=== PATIENT | female | born 1970 | race Caucasian/White ===

== ENCOUNTER 2022-08-01 10:35 | Outpatient (CLI) | payer OTHER, SELFPAY ==
--- OUTSIDE RECORDS SUMMARY | 2022-08-01 13:13 | XMS_ITS | Clinical Summary ---
:1970 Author Organization [facility] [facility] Address [place] [address] Care Team Providers Name Role Phone Yen Domingo MD Primary Care Provider Allergies No known active allergies Medications No known medications Active Problems Problem Noted Date Adenomatous colon polyp 05/31/2021 Overview: Colonoscopy 05/2021 polyp, repeat in 7 ye ars, propofol Class 1 obesity due to excess calories without serious comorbidity with 12/06/2020 body mass index (BMI) of 31.0 to 31.9 in adult Encounters Date Type Specialty Care Team Description 07/03/2022 Nurse/Clinic Staff Only Sutu re Removal 07/03/2022 Travel 07/01/2022 Travel 06/24/2022 Telephone Estrellita Gupta Results MD Melissa 06/19/2022 Procedure Only Estrellita Gupta Procedure MD Melissa 06/19/2022 Travel 06/16/2022 Travel 06/06/2022 Office Visit Estrellita Gupta Derm Problem MD Melissa 06/05/2022 Travel 05/09/2022 Orders Only Scanner <No scans attac hed> 05/09/2022 Orders Only Scanner <No scans attac hed> 05/09/2022 Orders Only Scanner <No scans attac hed> from Last 3 Months Immunizations Name Administration Dates Next Due AMB Influenza, IIV4 PF (=>6 mos Flulaval,Fluzone 06/26/2020 Fluarix)(Flu Clinic Only) COVID-19 vaccine (Moderna 100mcg/0.5mL) ASHLEY MELGOZA 01/09/2021, 12/12/2020 Influenza Virus, Unspecified 07/08/2017 Influenza, IIV4 07/10/2021 Tdap 09/12/2021, 11/29/2015 Family History Medical History Relation Name Comments Hyperlipidemia Brother Hypertension Brother Mental illness Brother Arrhythmia Father Cancer-prostate Father Hyperlipidemia Father Hypertension Father Diabetes type II Mother Stroke Mother Stroke Other great maternal a unt had stroke at age 19 Mental illness Sister 1 alcoholism and d epression Mental illness Sister 2 Relation Name Status Comments Brother Father Mother Other Sister 1 Sister 2 Social History Tobacco Use Types Packs/Day Years Used Date Never Smoker Smokeless Tobacco: Never Used Tobacco Cessation: Counseling Given: Yes Alcohol Use Standard Drinks/Week Comments Yes 0 (1 standard drink = 0.6 oz pure alcoho l) occasion wine Alcohol Habits Answer Date Recorded How often do you have a drink containing alcohol? 2-4 times a month 09/14/2019 How many drinks containing alcohol do you have on a 1 or 2 09/14/2019 typical day when you are drinking? How often do you have six or more drinks on one Never 09/14/2019 occasion? Comment: occasion wine 10/05/2018 Sex Assigned at Date Recorded Not on file COVID-19 Exposure Response Date Recorded In the last 10 days, have you been in contact with No / Unsu re 07/03/2022 1:01 PM CDT someone who was confirmed or suspected to have Coronavirus/COVID-19? Obstetrics History Last Filed Vital Signs Vital Sign Reading Time Taken Comments Blood Pressure 180/95 09/16/2021 2:16 PM [facility]IA[facility] Pulse 70 09/16/2021 2:16 PM [facility] Temperature 36.8 ??C (98.3 ??F) 05/24/2021 9:14 AM CDT Respiratory Rate - - Oxygen Saturation 100% 09/16/2021 2:16 PM [facility] Inhaled Oxygen Concentration - - Weight 78.7 kg (173 lb 8 oz) 09/16/2021 2:16 PM [facility] Height 152.4 cm (5') 05/24/2021 9:14 AM CDT Body Mass Index 33.88 05/24/2021 9:14 AM CDT Plan of Treatment Upcoming Encounters Date Type Specialty Care Team Description 08/06/2022 Office Visit Yen Domingo MD [address] [place], [place] [address] (Wo rk) 09/18/2022 Office Visit Estrellita Gupta MD [address] [address] (Wo rk) Health Maintenance Due Date Last Done Comments Pneumococcal series for age 19-64 1974 (1 - PCV) Hepatitis C screening for age 0312/20/1986 18-79 Zoster (shingles) series for age 0312/21/1987 50+ (1 of 2) COVID-19 vaccine series (4 - 10/11/2021 08/16/2021, 021, Booster for Moderna series) 12/12/2020 BMI (ht and wt on same day) for 05/24/2022 05/24/2021, 09/29, age 18+ 09/14/2019, Additional history exists Depression screening for age 12+ 05/27/2022 05/27/2021, , 10/20/2019, Additional history exists Influenza for age 50-64 05/29/2022 07/10/2021, 06/26/2020, 07/08/2017 Pap test for age 21-65 11/18/2022 11/18/2019, 11/18/2019, 02/03/2018, Additional history exists Mammogram for age 45-75 02/21/2023 02/21/2022, 02/20/2021 Lipids for age 45-75 11/13/2025 11/13/2020, 10/20/2019 Colonoscopy through age 75 05/27/2026 05/27/2021, , 12/27/2015, Additional history exists Tetanus booster 09/12/2031 09/12/2021, 11/29/2015 Tdap Completed 09/12/2021, 11/29/2015 Procedures Procedure Name Priority Date/Time Associated Diagnosis Comme nts PATH TISSUE EXAM Routine 06/19/2022 7:30 AM Melanoma in situ o f Results for this CDT right upper arm (HC) procedu re are in the results section. SCAN-PATHOLOGY 05/09/2022 12:00 AM Result s for this REPORT CDT procedure are i n the results section. SCAN-PATHOLOGY 05/09/2022 12:00 AM Result s for this REPORT CDT procedure are i n the results section. SCAN-OPERATIVE/PROC 05/09/2022 12:00 AM R esults for this EDURE REPORT CDT procedure are i n the results section. from Last 3 Months Results PATH TISSUE EXAM (06/19/2022 7:30 AM CDT) Component Value Ref Test Analysis Performed At [facility] gist Range Method Time Signature Case Report Pathology Report ?Case: [id number] ? 06/23/2022 [facility] Authorizing Provider: ??Rajeev jose, Estrellita Torres, ??Collected: ? 06/19/202230 ? 3:04 PM CDT HEALTH ? MD ? LABORATORY-C Ordering Location: ? [facility] ? Received: ?06/19/2022825 ? [facility] ? Clinic ? LABORATORY Pathologist: ? Casandra Joseph MD ? Specimen: ?Skin, right l ateral elbow ? Final SKIN, RIGHT LATERAL ELBOW, RE-EXCISION: 06/23/2022 [facility] Electronically Diagnosis 1. Biopsy site change consistent with prior procedure 3:04 PM [facility] [employer] signed by 2. Negative for residual melanoma in situ LABORATORY-C Casandra Joseph 3. Negative for invasive malignancy BRO Galeana MD on LABORATORY 06/23/2022 at 3:04 PM Clinical Re-excision 06/23/2022 [facility] Information MIS, tagged at 3:04 PM [facility] 12 o'clock LABORATORY-C ENTRAL LABORATORY Gross A) Received in formalin, lab eled with the patient's name and right lateral elbow, is a 3.8 x 2.0 x 0.5 cm oriented skin ellipse with a suture designating 12:00. The skin surface displays a 0.6 x 0.6 06/23/2022 [facility] Description cm flat parra-pink lesion whi ch is 0.5 cm from the nearest peripheral skin edge. 3:04 PM [facility] LABORATORY-C The specimen is inked as follows: ENTRAL 12-3 o'clock: Blue LABORATORY 3-6 o'clock: Green 6-9 o'clock: Red 9-12 o'clock: Yellow The specimen is entirely submitted as follows: 1. Tips (3:00 and 9:00) 2-6. ??Cross-sections, sequentially submitted (lesion in hanane settes 3-5) 06/19/2022 Microscopic The final diagnosis is based on microscopic examination of appropriate sections of all specimens. 06/23/2022 [facility] Description 3:04 PM [facility] LABORATORY-C Sections reveal skin with ce ntral biopsy site change. No residual melanoma is identified. The presence of multicolored ink is confirmed on tissue sections. ENTRAL LABORATORY Additional 06/23/2022 [facility] Information Interpreted at [facility], Central Laboratory - [address], [place] [address] 3:04 PM CDT HEALTH LABORATORY-C ENTRAL LABORATORY Specimen Anatomical Collection Method Collection Time Receive d Time (Source) Location / / Volume Laterality Other SPECIMEN FROM SKIN Non-Blood / 06/19/2022 7:30 AM 8:26 / Unknown Unknown CDT AM CDT Estrellita Gupta MD PATHOLOGY/CYTOLOGY Performing Organization Address City/State/ZIP Code Phon e Number [facility] [address] [place] [address] LABORATORY-CENTRAL 2000 LABORATORY SCAN-OPERATIVE/PROCEDURE REPORT (05/09/2022 12:00 AM CDT) Narrative This result has an attachment that is no t available. Scanner OTHER SCAN-PATHOLOGY REPORT (05/09/2022 12:00 AM CDT)Only the most recent of2 results within the time period is included. Narrative This result has an attachment that is no t available. Scanner OTHER from Last 3 Months Insurance Payer Benefit Plan / Subscriber ID Effective Dates Phone Addre ss Type Group [employer] [id number] 2017-Present [id number] [place] [address] Care Teams Oxygen Therapy Technician Relationship Specialty Start Date End Date Yen Domingo MD PCP - General Family Practice 09/14/19 [address] [place] [address]
== END 2022-08-01 10:36 | disposition home or self-care (01) ==
LOC: NFLDREF 13:12
PROVIDERS: PCP Family Medicine; Visit Provider Obstetrics & Gynecology
DX: Z01.419 Encounter for gynecological examination (general) (routine) without abnormal findings (principal); N87.0 Mild cervical dysplasia
CPT/HCPCS: 87624

== ENCOUNTER 2024-02-29 09:08 | Outpatient (CLI) | payer OTHER, SELFPAY ==
--- OUTSIDE RECORDS SUMMARY | 2024-02-29 09:10 | XMS_ITS | Clinical Summary ---
Author Organization [facility] Address [place], [place] [address] Care Team Providers Care Contact Center Engineer Name Role Phone Yen Domingo MD Primary Care Provider [phone] Allergies No known active allergies Medications Medication Sig Dispensed Refills Start Date End Date Status tirzepatide, weight loss, (Zepbound) 7.5 mg/0.5 mL penIndications:BMI 33.0-33.9,adult Inject 0.5 mL (7.5 mg) subcutaneous once weekly. 6 mL 12/18/2023 Active Active Problems Problem Noted Date Diagnosed Date Melanoma in situ, unspecified site 08/12/2023 Adenomatous colon polyp 05/31/2021 Overview: Colonoscopy 05/2021 polyp, repeat in 7 years, propofol Class 1 obesity due to exces s calories without serious comorbidity with body mass index (BMI) of 31.0 to 31.9 in adult 12/06/2020 Encounters Date Type Department Care Team Description 02/01/2024 Telephone [facility] [address] [place] [address] Yen Domingo MD Prior Authorization (tirzepatide, weight loss, (Zepbound) 7.5 mg/0.5 mL pen (DENIED)) 01/13/2024 Telephone [facility] [address] [place] [address] Yen Domingo MD Prior Authorization (tirzepatide, weight loss, (Zepbound) 7.5 mg/0.5 mL pen) 12/31/2023 Telephone [facility] [address] [place] [address] Yen Domingo MD Prior Authorization (tirzepatide, weight loss, (Zepbound) 7.5 mg/0.5 mL pen (PA NOT NEEDED)) 12/30/2023 Telephone [facility] [address] [place] [address] Yen Domingo MD Prior Authorization (tirzepatide, weight loss, (Zepbound) 7.5 mg/0.5 mL pen) 12/30/2023 Telephone [facility] [address] [place] [address] Yen Domingo MD Medication Management (tirzepatide, weight loss, (Zepbound) 7.5 mg/0.5 mL pen/) 12/18/2023 9:10 AM CDT Office Visit [facility] [address] [place] [address] Yen Domingo MD Medication Management 12/18/2023 Travel from Last 3 Months Immunizations Name Administration Dates Next Due AMB Influenza, IIV4 PF (=>6 mos Flulaval,Fluzone Fluarix)(Flu Clinic Only) 06/26/2020 COVID-19 vaccine (Moderna 10 0mcg/0.5mL) PF, MDV 01/09/2021,12/12/2020 Influenza Virus, Unspecified 07/08/2017 Influenza, IIV4 07/22/2023,07/13/2022,07/10/2021 Tdap 09/12/2021,11/29/2015 Family History Medical History Relation Name Comments Hyperlipidemia Brother Hypertension Brother Mental illness Brother Arrhythmia Father Cancer-prostate Father Hyperlipidemia Father Hypertension Father Diabetes type II Mother Stroke Mother Stroke Other great maternal aunt had stroke at age 19 Mental illness Sister 1 alcoholism an d depression Mental illness Sister 2 Relation Name Status Comments Brother Father Mother Other Sister 1 Sister 2 Social History Tobacco Use Types Packs/Day Years Used Date Smoking Tobacco: Never Smokeless Tobacco: Never Tobacco Cessation:Counseling Given: Yes Alcohol Use Standard Drinks/Week Comments Yes 0 (1 standard drink = 0.6 oz pur e alcohol) occasion wine PHQ-2 Answer Date Recorded PHQ-2 TOTAL SCORE 4 08/12/2023 Social Connections Answer Date Recorded Frequency of Communication with Friends and Fami ly 0 05/11/2023 Financial Resource Strain Answer Date R ecorded Difficulty of Paying Living Expenses 3 05/11/2023 Difficulty of Paying Living Expenses Not on file 05/11/2023 Food Insecurity Answer Date Recorded Worried About Running Out of Food in the Last Ye ar 1 05/11/2023 Transportation Needs Answer Date Record ed Lack of Transportation (Medical) 1 05/11/2023 Housing Stability Answer Date Recorded Unable to Pay for Housing in the Last Year 1 05/11/2023 Sex and Gender Information Value Date Recorded Sex Assigned at Not on file Gender Identity Not on file Sexual Orientation Not on file Obstetrics History Last Filed Vital Signs Vital Sign Reading Time Taken Comments Blood Pressure 128/80 12/18/2023 9:59 AM CDT Pulse 80 12/18/2023 9:19 AM CDT Temperature 36.8 ??C (98.2 ??F) 08/06/2022 8:49 AM CS T Respiratory Rate - - Oxygen Saturation 100% 12/18/2023 9:19 AM CDT Inhaled Oxygen Concentration - - Weight 77.6 kg (171 lb) 12/18/2023 9:19 AM CDT Height 151.7 cm (4' 11.72) 12/18/2023 9:19 AM C DT Body Mass Index 33.71 12/18/2023 9:19 AM CDT Plan of Treatment Upcoming Encounters Date Type Department Care Team (Late st Contact Info) Description 04/12/2024 8:30 AM CDT Office Visit [facility] [address] [phone] Estrellita Gupta MD [address] [phone] Health Maintenance Due Date Last Done Comments Pneumococcal series for age 6-64 (1 of 2 - PCV) 1974 HIV for age 15-65 12/21/1983 Zoster (shingles) series for age 50+ (1 of 2) 12/21/1987 COVID-19 vaccine series (2022- season) 2023 07/20/2022, 08/16/2021, 01/09/2021, Additional history exists Mammogram for age 45-75 02/26/2024 02/26/20, 02/21/2022, 02/20/2021 Influenza for age 50-64 05/29/2024 07/22/20 23, 07/13/2022, 07/10/2021, Additional history exists Depression screening for age 12+ 08/13/2024 08/13/2023, 08/12/2023, 08/07/2022, Additional history exists BMI (ht and wt on same day) for age 18+ 12/17/2024 12/18/2023, 08/12/2023, 08/06/2022, Additional history exists Colonoscopy through age 75 05/27/202605/27, 05/27/2021, 12/27/2015, Additional history exists Pap test for age 21-65 09/11/2026 , 09/11/2023, 08/01/2022, Additional history exists Lipids for age 45-75 08/06/2027 08/06/2022, 11/13/2020, 10/20/2019 Tetanus booster 09/12/2031 09/12/2021, 11/29/2015 Tdap Completed 09/12/2021, 11/29/2015 Hepatitis C screening for ag e 18-79 Completed 08/06/2022 Procedures Procedure Name Priority Date/Time Associated Diagnosis Comments HPV THIN PREP Routine 09/11/2023 12:00 PM HEAT TREAT SUPERVISOR SCAN-MAMMOGRAPHY REPORT 02/25/2023 12:00 AM CDT ANTI HCV Routine 08/06/2022 9:49 AM HEAT TREAT SUPERVISOR Need for hepatitis C screening test LIPID PANEL W REFLEX MEASURED LDL Routine 08/06/2022 9:49 AM HEAT TREAT SUPERVISOR Lipid screening COLONOSCOPY SCREENING Routine 05/27/2021 12:00 AM CDT Encounter for screening colonoscopy from Last 3 Months or Most Recently Relevant to Health Maintenance Results * HPV HIGH RISK (09/11/2023 12:00 PM HEAT TREAT SUPERVISOR) TYPE 16 Negative Negative 09/22/2023 2:10 PM HEAT TREAT SUPERVISOR [facility] TRAL LABORATORY TYPE 18 Negative Negative 09/22/2023 2:10 PM HEAT TREAT SUPERVISOR [facility] TRA LABORATORY OTHER HIGH RISK TYPES Negative Negative 09/22/2023 2:10 PM HEAT TREAT SUPERVISOR [facility] Other (Cervical) 09/11/2023 12:00 PM HEAT TREAT SUPERVISOR 09/17/2023 4:27 PM HEAT TREAT SUPERVISOR Narrative [facility] - 09/22/2023 2:10 PM HEAT TREAT SUPERVISOR HPV types 16, 18, 31, 33, 35, 39, 45, 51, 52, 56, 58, 59, 66 and 68 DNA were undetectable or below the pre-set threshold. Methodology: [employer] Sarika 4800 HPV Test Jazz Avina MD MICROBIOLO [facility] [address] [place] [id number], * SCAN-MAMMOGRAPHY REPORT (02/25/2023 12:00 AM CDT) Anatomical Region Laterality Modality Other Scanner OTHER * (ABNORMAL) LIPID PANEL W REFLEX MEASURED LDL (08/06/2022 9:49 AM HEAT TREAT SUPERVISOR) CHOLESTEROL,TOTAL 230(H) 100 - 199 mg/dL 08/06/2022 9:25 PM HEAT TREAT SUPERVISOR [facility] TRAL LAB[facility] TRIGLYCERIDES 106 <150 mg/dL 08/06/2022 9:25 PM HEAT TREAT SUPERVISOR [facility] TRA LABORATORY HDL CHOLESTEROL 41 >40 mg/dL 9:25 PM HEAT TREAT SUPERVISOR [facility] LAB[facility]ATORY NON-HDL CHOLESTEROL 189(H) <145 mg/dl 08/06/2022 9:25 PM HEAT TREAT SUPERVISOR [facility]ORY CHOL/HDL RATIO 5.61(H) <4.50 08/06/2022 9:25 PM HEAT TREAT SUPERVISOR [facility] LDL CHOLESTEROL 168(H) <=130 mg/dL 08/06/2022 9:25 PM HEAT TREAT SUPERVISOR [facility] TR[facility] LAB[facility] VLDL CHOLESTEROL 21 <=30 mg/dL 08/06/2022 9:25 PM HEAT TREAT SUPERVISOR [facility] TRAL LABORAT[facility] PROVIDER ORDERED STATUS RANDOM 08/06/2022 9:25 PM HEAT TREAT SUPERVISOR [facility] LAB[facility] Blood BLOOD SPECIMEN / Unknown Venipuncture / Unknown 08/06/2022 9:49 AM HEAT TREAT SUPERVISOR 08/06/2022 9:54 AM HEAT TREAT SUPERVISOR Yen Domingo MD [facility] [address] [place] [address], * ANTI HCV (08/06/2022 9:49 AM HEAT TREAT SUPERVISOR) HEPATITIS C ANTIBODY Non-React maria eugenia Non-React maria eugenia 08/06/2022 9:46 PM HEAT TREAT SUPERVISOR [facility] TRAL LAB[facility] Comment:Antibodies to HCV no t detected; does not exclude the possibility of exposure to HCV. Blood BLOOD SPECIMEN / Unknown Venipuncture / Unknown 08/06/2022 9:49 AM HEAT TREAT SUPERVISOR 08/06/2022 9:54 AM HEAT TREAT SUPERVISOR Yen Domingo MD SEND OUTS [facility] [address] [place] [address], * COLONOSCOPY SCREENING (05/27/2021 12:00 AM CDT) Yen Domingo MD GI PROCEDURE ORD from Last 3 Months or Most Recently Relevant to Health Maintenance Care Teams Contact Center Engineer Relationship Specialty Start Date End Date Yen Domingo MD [address] [place] [address] PCP - General Family Practice 09/14/19
--- NOTE | 2024-02-29 09:15 | CRLHL7_ITS ---
For Patients: As a result of the Century Cures Act, medical imaging exams and procedure reports are released immediately into your electronic medical record. You may view this report before your referring provider. If you have questions, please contact your health care provider. BILATERAL SCREENING MAMMOGRAM WITH COMPUTER-AIDED DETECTION AND TOMOSYNTHESIS TECHNIQUE: CC and MLO views were obtained. These mammographic images have been obtained using full-field digital technique. These mammographic images were interpreted with the benefit of computer-aided detection. Breast Tomosynthesis was used in this interpretation. COMPARISON FILM: 02/25/23, 02/21/22, 02/20/21. FINDINGS: There are scattered areas of fibroglandular density. IMPRESSION: There is no radiographic evidence for malignancy. ASSESSMENT: BI-RADS Category 1: Negative RECOMMENDATION: Routine screening mammogram in 1 year. A lay language report of this examination will be provided to the patient. Manny Sequeira M.D. Diagnostic Radiologist [email or web address] SP/Dictated by: Manny Sequeira MD @ 03/01/2024 10:11:00 AM (Electronically Signed)
== END 2024-02-29 09:09 | disposition home or self-care (01) ==
LOC: MAMMO 09:08
PROVIDERS: PCP Family Medicine; Visit Provider Family Medicine
DX: Z12.31 Encounter for screening mammogram for malignant neoplasm of breast (principal)
CPT/HCPCS: 77063; 77067

== ENCOUNTER 2024-10-18 10:51 | Outpatient (CLI) | payer OTHER, SELFPAY ==
[2024-10-20 01:02] LABS: HPV Source Cervical; HPV, High Risk by TMA Not Detected
== END 2024-10-18 10:52 | disposition home or self-care (01) ==
PROVIDERS: PCP Family Medicine; Visit Provider Obstetrics & Gynecology
DX: Z12.4 Encounter for screening for malignant neoplasm of cervix (principal); Z11.51 Encounter for screening for human papillomavirus (HPV)
CPT/HCPCS: 87624; 87625; 88141; 88142

== ENCOUNTER 2025-04-05 08:06 | Outpatient (CLI) | payer OTHER, SELFPAY ==
--- NOTE | 2025-04-05 08:15 | CRLHL7_ITS ---
For Patients: As a result of the Century Cures Act, medical imaging exams and procedure reports are released immediately into your electronic medical record. You may view this report before your referring provider. If you have questions, please contact your health care provider. INDICATION: BILATERAL SCREENING MAMMOGRAM, ASYMPTOMATIC 54 Y/O FEMALE COMPARISON: 02/29/2024, 02/25/2023, 02/21/2022 TECHNIQUE: Digital mammogram in CC and MLO projections including computer-aided detection (CAD) and tomosynthesis. BREAST COMPOSITION: There are scattered areas of fibroglandular density. FINDINGS: No suspicious findings. ASSESSMENT: BI-RADS 2 Benign RECOMMENDATION: Annual screening mammogram. A lay language report of this examination will be provided to the patient. Dictated by: Manny Sequeira MD @ 04/05/2025 13:29:12 (Electronically Signed)
== END 2025-04-05 08:07 | disposition home or self-care (01) ==
LOC: MAMMO 08:06
PROVIDERS: PCP Family Medicine; Visit Provider Obstetrics & Gynecology
DX: Z12.31 Encounter for screening mammogram for malignant neoplasm of breast (principal)
CPT/HCPCS: 77063; 77067